=== PATIENT | female | born 1985 | race African-American/Black ===

== ENCOUNTER 2016-11-03 06:22 | Emergency (ER) | payer OTHER ==
[~2016-11-03] VITALS: Ht 167.6 cm; Wt 107.0 kg
[~2016-11-03 06:22] MED LIST: AMOX875 PO; MACR100C PO; PREN0.01 PO
[2016-11-03 06:23] VITALS: BP 117/64; PULSE 88; RESP 16; TEMP 98.3; O2SAT 96
[2016-11-03 06:44] VITALS: BP 126/88; PULSE 85; RESP 18; O2SAT 99
[2016-11-03] MEDS ORDERED: SODIUM CHLOR 0.9% 1000 ML INJ 1,000 ML IV ONE (07:30)
[2016-11-03] MEDS ORDERED: KETOROLAC TROMETHAMINE 30 MG/ML (IVP) VIAL IV PUSH ONE (07:30)
[2016-11-03] MEDS ORDERED: ONDANSETRON HCL 4 MG/2 ML VIAL IV PUSH ONE (07:30)
--- NOTE | 2016-11-03 07:32 | PD ---
HPI Chief Complaint: Abdominal Pain Time Seen by Provider: 07:07 Travel History International Travel<30 days: No Contact w/Intl Traveler<30days: No Traveled to known affect area: No History of Present Illness HPI Patient is a 30-year-old female comes in complaining of right lower abdominal pain. She says she has had the pain for 2-1/2 months. She has seen her doctor in [place] twice for this pain was told she had an ovarian cyst in August. She says she was started on control by her doctor for the pain. She says that she gets the pain about twice a month. This time came on Thursday. She says the pain is so bad it makes her nauseous. She has not had any vomiting. She denies any dysuria or vaginal discharge. She is moving her bowels like normal. She denies any fever or chills. She has not taken anything at home for the pain. Her last menstrual period was October 07. PFSH Past Medical History Hx Anticoagulant Therapy: No Asthma: Yes Cardiovascular Problems: No Chemotherapy: No Cerebrovascular Accident: No Diabetes: No Diminished Hearing: No Respiratory: No ?: Not LMP: 10/07/16 : 5 Para: 3 Ovarian Cysts: Yes Past Surgical History Appendectomy: Yes Section: Yes (X2) Hysterectomy: No Social History Alcohol Use: No Tobacco Use: No Substance Use: Yes (marijuana ) Allergies-Medications (Allergen,Severity, Reaction): Coded Allergies: No Known Allergies (Unverified , 11/03/16) Reported Meds & Prescriptions Reported Meds & Active Scripts Active Review of Systems Except as stated in HPI: all other systems reviewed are Neg General / Constitutional: No: Fever, Chills HENT: No: Headaches Cardiovascular: No: Chest Pain or Discomfort Respiratory: No: Shortness of Breath Gastrointestinal: Positive: Nausea, Abdominal Pain, No: Vomiting Genitourinary: No: Dysuria, Discharge Musculoskeletal: No: Pain Skin: No Rash, No Itching, No Change in Pigmentation Neurologic: No: Weakness, Dizziness Physical Exam Narrative GENERAL: Awake and alert, in no acute distress. SKIN: Warm and dry. HEAD: Atraumatic. Normocephalic. EYES: Pupils equal and round. No scleral icterus. ENT: Mucous membranes pink and moist. NECK: Trachea midline. No JVD. CARDIOVASCULAR: Regular rate and rhythm. No murmur appreciated. RESPIRATORY: No accessory muscle use. Clear to auscultation. Breath sounds equal bilaterally. GASTROINTESTINAL: Abdomen soft, nondistended. Mild tenderness to palpation of the right lower quadrant, no rebound or guarding. No CVA tenderness. PELVIC: MUSCULOSKELETAL: No obvious deformities. No clubbing. No cyanosis. No edema. NEUROLOGICAL: Awake and alert. No obvious cranial nerve deficits. Motor grossly within normal limits. Normal speech. PSYCHIATRIC: Appropriate mood and affect; insight and judgment normal. Data Data Last Documented VS Vital Signs Date Time Temp Pulse Resp B/P Pulse Ox O2 Delivery O2 Flow Rate FiO2 11/03/16 09:29 18 11/03/16 06:44 85 126/88 99 Room Air 11/03/16 06:23 98.3 Orders Complete Blood Count With Diff (11/03/16 07:16) Comprehensive Metabolic Panel (11/03/16 07:16) Urinalysis - C+S If Indicated (11/03/16 07:16) Ed Urine Pregnancytest Poc (11/03/16 07:16) Ketorolac Inj (Toradol Inj) (11/03/16 07:30) Ondansetron Inj (Zofran Inj) (11/03/16 07:30) Sodium Chlor 0.9% 1000 Ml Inj (Ns 1000 M (11/03/16 07:30) Us Pelvis Comp W Doppler (11/03/16 ) Labs Laboratory Tests Test 11/03/16 07:25 White Blood Count 8.3 TH/MM3 Red Blood Count 4.86 MIL/MM3 Hemoglobin 10.0 GM/DL Hematocrit 31.6 % Mean Corpuscular Volume 65.0 FL Mean Corpuscular Hemoglobin 20.6 PG Mean Corpuscular Hemoglobin 31.7 % Concent Red Cell Distribution Width 21.6 % Platelet Count 205 TH/MM3 Mean Platelet Volume 9.8 FL Neutrophils (%) (Auto) 55.9 % Lymphocytes (%) (Auto) 33.2 % Monocytes (%) (Auto) 8.0 % Eosinophils (%) (Auto) 2.3 % Basophils (%) (Auto) 0.6 % Neutrophils # (Auto) 4.7 TH/MM3 Lymphocytes # (Auto) 2.8 TH/MM3 Monocytes # (Auto) 0.7 TH/MM3 Eosinophils # (Auto) 0.2 TH/MM3 Basophils # (Auto) 0.0 TH/MM3 CBC Comment AUTO DIFF Differential Comment AUTO DIFF CONFIRMED Urine Color YELLOW Urine Turbidity HAZY Urine pH 5.5 Urine Specific [place] 1.035 Urine Protein TRACE mg/dL Urine Glucose (UA) NEG mg/dL Urine Ketones NEG mg/dL Urine Occult Blood NEG Urine Nitrite NEG Urine Bilirubin NEG Urine Urobilinogen LESS THAN 2.0 MG/DL Urine Leukocyte Esterase NEG Urine RBC LESS THAN 1 /hpf Urine WBC 2 /hpf Urine Squamous Epithelial 5 /hpf Cells Urine Bacteria RARE /hpf Urine Hyaline Casts 1 /lpf Urine Mucus MANY /lpf Microscopic Urinalysis Comment CULT NOT INDICATED Sodium Level 142 MEQ/L Potassium Level 3.6 MEQ/L Chloride Level 108 MEQ/L Carbon Dioxide Level 25.1 MEQ/L Anion Gap 9 MEQ/L Blood Urea Nitrogen 12 MG/DL Creatinine 0.82 MG/DL Estimat Glomerular Filtration 100 ML/MIN Rate Random Glucose 104 MG/DL Calcium Level 8.6 MG/DL Total Bilirubin 0.3 MG/DL Aspartate Amino Transf 9 U/L (AST/SGOT) Alanine Aminotransferase 14 U/L (ALT/SGPT) Alkaline Phosphatase 68 U/L Total Protein 7.5 GM/DL Albumin 3.3 GM/DL [facility] Medical Decision Making Medical Screen Exam Complete: Yes Emergency Medical Condition: Yes Differential Diagnosis Ovarian cyst versus UTI versus mittelschmerz syndrome Narrative Course Patient is a 30 year old female who comes in complaining of right sided abdominal pain. Exam shows mild right sided tenderness. IV established, labs sent. Labs show no acute abnormalities. Patient given Toradol and IVF. US performed shows no acute abnormalities. Patient discharged with prescription for naproxen. Advised to follow up with her doctors. Advised to return to the ED as needed for any worsening symptoms. Diagnosis Primary Impression: Abdominal pain Qualified Code: R10.31 - Right lower quadrant abdominal pain Patient Instructions: Abdominal Pain (ED), General Instructions, Mittelschmerz (ED) Additional Instructions: Take Naproxen as needed for pain. Follow up with your doctors. Return to the ED as needed for any worsening symptoms. Scripts Naproxen Sodium DS 550 Mg Tsd082 Mg PO BID 7 Days Ref 0 Prov:Maria Eugenia Ruvalcaba MD 11/03/16 Disposition: DISCHARGE HOME Condition: Stable Maria Eugenia Ruvalcaba MD Nov 03, 2016 07:32
[2016-11-03 07:35] LABS: AUTOMATED NEUTROPHIL # 4.7 TH/MM3 (1.8-7.7); BASOPHIL % 0.6 % (0.0-2.0); EOSINOPHIL # 0.2 TH/MM3 (0-0.4); EOSINOPHIL % 2.3 % (0.0-4.0); HEMATOCRIT 31.6 % (35.0-46.0); LYMPH % 33.2 % (9.0-44.0); LYMPHOCYTE # 2.8 TH/MM3 (1.0-4.8); MEAN CORPUSCULAR HEMOGLOBIN 20.6 PG (27.0-34.0); MEAN CORPUSCULAR HGB CONC 31.7 % (32.0-36.0); NEUT % 55.9 % (16.0-70.0); PLATELET COUNT 205 TH/MM3 (150-450); RED BLOOD COUNT 4.86 MIL/MM3 (4.00-5.30); RED CELL DISTRIBUTION WIDTH 21.6 % (11.6-17.2); WHITE BLOOD COUNT 8.3 TH/MM3 (4.0-11.0)
[2016-11-03 07:36] LABS: HEMO FLAGS AUTO DIFF
[2016-11-03 07:47] LABS: ANION GAP 9 MEQ/L (5-15); AST (GOT) 9 U/L (15-37); BACTERIA, URINE RARE /hpf; BICARBONATE 25.1 MEQ/L (21.0-32.0); BLOOD UREA NITROGEN 12 MG/DL (7-18); BLOOD, URINE NEG (NEG); CHLORIDE 108 MEQ/L (98-107); COMMENT (UR) CULT NOT INDICATED; CULTURE IF INDICATED CULT NOT INDICATED; GLOMERULAR FILTRATION RATE 100 ML/MIN (>89); GLUCOSE,URINE NEG (NEG); HYALINE CAST, URINE 1 /lpf (RARE); KETONE, URINE NEG (NEG); MUCUS URINE MANY /lpf (OCC); NITRITE,URINE NEG (NEG); PH, URINE 5.5 (5.0-8.5); POTASSIUM 3.6 MEQ/L (3.5-5.1); SODIUM (NA) 142 MEQ/L (136-145); SQUAMOUS EPITHELIAL CELL URINE 5 /hpf (0-5); URINE COLOR YELLOW (YELLW/STRAW)
[2016-11-03 07:51] LABS: ALKALINE PHOSPHATASE 68 U/L (45-117); ALT (GPT) 14 U/L (10-53); TOTAL BILIRUBIN ADULT 0.3 MG/DL (0.2-1.0)
[2016-11-03 08:15] LABS: SCAN/DIFF AUTO DIFF CONFIRMED
[2016-11-03 09:29] VITALS: RESP 18
--- NOTE | 2016-11-03 10:25 | RADRPT ---
EXAM DATE/TIME: 11/03/2016 07:50 [facility] COMPARISON: No previous studies available for comparison. EXTERNAL COMPARISON : [facility], US TRANSVAGINAL, September 29, 2016, US PELVIS - COMPLETE, September 29, 2016. INDICATIONS : Pelvic pain. Ovarian cysts. MEDICAL HISTORY : Asthma. Ovarian cysts. Substance use. SURGICAL HISTORY : Appendectomy. section. ENCOUNTER: Subsequent ACUITY: 2 weeks PAIN SCORE: 3/10 LOCATION: Right pelvis MEASUREMENTS: UTERUS: 11.0 x 4.1 x 6.1 cm ENDOMETRIAL STRIPE: 3 mm RIGHT OVARY: 2.9 x 1.8 x 2.3 cm LEFT OVARY: 3.3 x 1.7 x 1.9 cm FINDINGS: UTERUS: The myometrium has homogeneous echotexture without mass. RIGHT OVARY: Ovary contains no mass or significant cystic lesion. Color Doppler flow is noted within the ovary. LEFT OVARY: Ovary contains no mass or significant cystic lesion. Color Doppler flow is noted within the ovary. MISCELLANEOUS: No free fluid. CONCLUSION: Normal examination. Donn Higginbotham MD on November 03, 2016 at 10:22 Board Certified Radiologist. This report was verified electronically.
[2016-11-03] MEDS ORDERED: NAPR550T3 PO (10:39)
[2016-11-03 11:05] VITALS: BP 114/76
== END 2016-11-03 11:05 | disposition home or self-care (01) ==
LOC: NEPE 06:22
DX: R10.30 Lower abdominal pain, unspecified (principal); F12.90 Cannabis use, unspecified, uncomplicated
CPT/HCPCS: 76856; 80053; 81001; 84703; 85025; 93975; 96361; 96374; 96375; 99284; J1885; J2405; J7030

== ENCOUNTER 2017-06-18 04:36 | Emergency (ER) | payer MEDICAID, OTHER ==
[~2017-06-18 04:36] MED LIST changes: -AMOX875 PO; -MACR100C PO; +NAPR550T3 PO; -PREN0.01 PO
[2017-06-18 04:38] VITALS: BP 166/81; PULSE 101; RESP 16; TEMP 98; O2SAT 100
[2017-06-18] MEDS ORDERED: DICL75TA PO ×2 (05:09)
[2017-06-18] MEDS ORDERED: NAPROXEN 500 MG TAB PO ONE ×2 (05:15)
--- NOTE | 2017-06-18 05:15 | PD ---
HPI Chief Complaint: Musculoskeletal Complaint Time Seen by Provider: 05:01 Travel History International Travel<30 days: No Contact w/Intl Traveler<30days: No Traveled to known affect area: No History of Present Illness HPI 31-year-old black female presents to emergency Department with complaints of left knee pain. She states that she had an injury yesterday when she was wrestling with a friend. They pulled on her leg and she felt something pull in her knee. Since then she's been having pain with weightbearing. The pain is more in the back of her knee. She denies any history of knee problems in the past. Patient denies any injury to her head, neck or back. Pain is mild but more moderate when she attempts to bear weight. Some relief with elevation. PFSH Past Medical History Hx Anticoagulant Therapy: No Asthma: Yes Cardiovascular Problems: No Chemotherapy: No Cerebrovascular Accident: No Diabetes: No Diminished Hearing: No Respiratory: No Tetanus Vaccination: Unknown ?: Unknown LMP: 05/17/17 : 5 Para: 3 : 1 Ovarian Cysts: Yes Past Surgical History Appendectomy: Yes Section: Yes (X2) Hysterectomy: No Social History Alcohol Use: Yes (OCC) Tobacco Use: No Substance Use: Yes (marijuana ) Allergies-Medications (Allergen,Severity, Reaction): Coded Allergies: No Known Allergies (Unverified , 06/18/17) Reported Meds & Prescriptions Reported Meds & Active Scripts Active No Active Prescriptions or Reported Medications Review of Systems General / Constitutional: No: Fever Eyes: No: Visual changes HENT: No: Headaches Cardiovascular: No: Chest Pain or Discomfort Respiratory: No: Shortness of Breath Gastrointestinal: No: Abdominal Pain Genitourinary: No: Dysuria Musculoskeletal: Positive: Arthralgias, Limited ROM, Pain, No: Edema Skin: No Rash Neurologic: No: Weakness Psychiatric: No: Depression Endocrine: No: Polydipsia Hematologic/Lymphatic: No: Easy Bruising Physical Exam Narrative GENERAL: This is a well-nourished, well-developed patient, in no apparent distress. SKIN: No rashes, ecchymoses or lesions. Warm and dry. HEAD: Atraumatic. Normocephalic. EYES: PERRL, EOMI, no discharge or injection. No scleral icterus. EARS: Clear NOSE: Nasal turbinates appear normal. THROAT: Mucosa pink and moist. Airway patent. NECK: Trachea midline. supple, moves head freely. LUNGS: Clear to auscultation. CV: Regular in rhythm. ABDOMEN: Soft nontender. EXT: No clubbing cyanosis or edema. Examination of the left lower extremity reveals pain in the hamstring area into the knee. She also complains of some tenderness to the medial lateral compartments of the knee. There is no instability. No anterior posterior draw. No joint effusion. The skin is intact. Patient ambulates with antalgic gait. Patient's neurovascular intact area no pain in the hip, ankle or foot. Data Data Last Documented VS Vital Signs Date Time Temp Pulse Resp B/P (MAP) Pulse Ox O2 Delivery O2 Flow Rate FiO2 06/18/17 04:38 98.0 101 16 166/81 (109) 100 Room Air Orders Orders Splint Or Brace Apply/Monitor (06/18/17 05:07) Crutches (06/18/17 05:07) Naproxen (Naprosyn) (06/18/17 05:15) Ed Discharge Order (06/18/17 05:07) MDM Medical Decision Making Medical Screen Exam Complete: Yes Emergency Medical Condition: Yes Medical Record Reviewed: Yes Differential Diagnosis MDM: High Differential diagnoses: Fracture, sprain, strain, dislocation, contusion, neurovascular injury Narrative Course Patient's exam and history does not indicate a need for an x-ray today. Patient will be given Naprosyn 500 g by mouth, Shane wrap and crutches. This is left knee sprain Diagnosis Primary Impression: left knee sprain Patient Instructions: General Instructions Additional Instructions: Rest. Elevation. Ice packs for the next 3 days. Shane wrap and crutches. No weight-bearing and then progress to weight-bearing as tolerated. Medications as directed Follow-up with an orthopedist or your doctor in one week. Return to the ER if any problems Med/Other Pt SpecificInfo: Prescription(s) given Scripts Diclofenac Sodium (Diclofenac Sodium DR) 75 Mg Tabdr 75 MG PO BID, #20 TAB 0 Refills Prov: Jose Roberto Salazar MD 06/18/17 Disposition: 01 DISCHARGE HOME Condition: Stable Iván Mathias Jun 18, 2017 05:15
== END 2017-06-18 05:25 | disposition home or self-care (01) ==
LOC: NEPD 04:36
DX: S83.92XA Sprain of unspecified site of left knee, initial encounter (principal); X50.9XXA Other and unspecified overexertion or strenuous movements or postures, initial encounter; Y93.72 Activity, wrestling
CPT/HCPCS: 99283; E0113

== ENCOUNTER 2017-08-13 22:12 | Emergency (ER) | payer MEDICAID ==
[~2017-08-13] VITALS: Ht 165.1 cm; Wt 101.0 kg
[~2017-08-13 22:12] MED LIST changes: +DICL75TA PO; -NAPR550T3 PO
[2017-08-13 22:13] VITALS: BP 138/60; PULSE 91; RESP 16; TEMP 97.8; O2SAT 98
--- NOTE | 2017-08-13 22:51 | RADRPT ---
EXAM DATE/TIME: 08/13/2017 22:43 [facility] COMPARISON: No previous studies available for comparison. INDICATIONS : Left anterior lateral knee pain, fell MEDICAL HISTORY : None. SURGICAL HISTORY : None. ENCOUNTER: Initial ACUITY: 2 months PAIN SCORE: 8/10 LOCATION: Left Knee FINDINGS: Four view examination of the left knee demonstrates no evidence of fracture or dislocation. Bony min eralization is normal. The articular surfaces are intact. The suprapatellar soft tissues have a nor mal configuration. CONCLUSION: No evidence of recent bony injury. Santhosh Blanco MD on August 13, 2017 at 22:49 Board Certified Radiologist. This report was verified electronically.
[2017-08-13] MEDS ORDERED: traMADol HCL 50 MG TAB PO ONE (23:15)
[2017-08-13] MEDS ORDERED: NAPROXEN 500 MG TAB PO ONE (23:15)
[2017-08-13] MEDS ORDERED: TRAM50 PO (23:16)
[2017-08-13] MEDS ORDERED: DICL75TA PO (23:16)
--- NOTE | 2017-08-13 23:22 | PD ---
HPI Chief Complaint: Pain: Acute or Chronic Time Seen by Provider: 23:04 Travel History International Travel<30 days: No Contact w/Intl Traveler<30days: No Traveled to known affect area: No History of Present Illness HPI 31-year-old black female presents to emergency department with complaints of left knee pain after a fall. Patient said had a history of left knee pain for the last 2 months. She denies any numbness or tingling. No injury to her head , neck or back. Pain is worse when she squats or bends. She states the pain is not as severe as she stands or walks. Pain is mild to moderate. Some alleviating factors of elevation and immobilization. PFSH Past Medical History Narrative Medical Chronic left knee pain Hx Anticoagulant Therapy: No Asthma: Yes Cardiovascular Problems: No Chemotherapy: No Cerebrovascular Accident: No Diabetes: No Diminished Hearing: No Respiratory: No Tetanus Vaccination: Unknown Influenza Vaccination: No ?: Not LMP: 08/08/17 : 5 Para: 3 Miscarriage: 4 : 1 Ovarian Cysts: Yes Past Surgical History Surgical History: No Previous Surgery Appendectomy: Yes Section: Yes (X2) Hysterectomy: No Social History Alcohol Use: Yes (OCC) Tobacco Use: No Substance Use: Yes (marijuana ) Allergies-Medications (Allergen,Severity, Reaction): Coded Allergies: No Known Allergies (Unverified Adverse Reaction, Unknown, 08/13/17) Reported Meds & Prescriptions Reported Meds & Active Scripts Active Ultram (Tramadol HCl) 50 Mg Tab 50 Mg PO Q4H PRN Diclofenac Sodium DR (Diclofenac Sodium) 75 Mg Tabdr 75 Mg PO BID Diclofenac Sodium DR (Diclofenac Sodium) 75 Mg Tabdr 75 Mg PO BID Review of Systems General / Constitutional: No: Fever Eyes: No: Visual changes HENT: No: Headaches Cardiovascular: No: Chest Pain or Discomfort Respiratory: No: Shortness of Breath Gastrointestinal: No: Abdominal Pain Genitourinary: No: Dysuria Musculoskeletal: Positive: Arthralgias, Limited ROM, Pain Skin: No Rash Neurologic: No: Weakness Psychiatric: No: Depression Endocrine: No: Polydipsia Hematologic/Lymphatic: No: Easy Bruising Physical Exam Narrative GENERAL: Well-developed, well-nourished in no apparent distress. Nontoxic appearing. HEAD: Normocephalic, atraumatic. EYES: Pupils equal round and reactive. Extraocular motions intact. No scleral icterus. No injection or drainage. ENT: Nose clear. Throat without erythema, tonsillar hypertrophy or exudate. Uvula midline. Airway patent. NECK: Trachea midline. Supple, nontender, moves head freely. No central bony tenderness or spasm. CARDIOVASCULAR: Regular rate and rhythm without murmurs, gallops, or rubs. RESPIRATORY: Clear to auscultation. Breath sounds equal bilaterally. No wheezes , rales, or rhonchi. GASTROINTESTINAL: Abdomen soft, non-tender, nondistended. No hepato-splenomegaly , or palpable masses. No guarding. EXTREMITIES: No clubbing, cyanosis, or edema. Examination left lower extremity reveals tenderness over the patella and posterior popliteal fossa. Patient has no anterior posterior draw. No medial lateral collateral ligament instability or pain. No joint effusion. She has full extension but has slightly limited flexion. Positive pain on meniscal testing. No pain in the hip, ankle or foot. She has intact sensation with good distal pulses. Right lower extremity as well as upper extremities are without localizing bony tenderness or deformity. Neurovascular intact. BACK: Nontender without deformity. No flank tenderness. NEUROLOGICAL: Awake, alert and oriented x 3 .Cranial nerves grossly intact. Motor and sensory grossly within normal limits. Normal speech. Data Data Last Documented VS Vital Signs Date Time Temp Pulse Resp B/P (MAP) Pulse Ox O2 Delivery O2 Flow Rate FiO2 08/13/17 23:14 20 08/13/17 22:13 97.8 91 138/60 (86) 98 Room Air Orders Orders Knee, Complete (4vws) (08/13/17 ) Ed Discharge Order (08/13/17 23:12) Tramadol (Ultram) (08/13/17 23:15) Naproxen (Naprosyn) (08/13/17 23:15) [facility] Medical Decision Making Medical Screen Exam Complete: Yes Emergency Medical Condition: Yes Medical Record Reviewed: Yes Interpretation(s) Last 24 hours Impressions Knee X-Ray 08/13/17 0000 Signed Impressions: Service Date/Time: July 22:43 - CONCLUSION: No evidence of recent bony injury. Santhosh Blanco MD Differential Diagnosis MDM: High Differential diagnoses: Fracture, sprain, strain, dislocation, contusion, neurovascular injury Narrative Course x-RAY OF THE LEFT KNEE IS NEGATIVE FOR BONY INJURY. Patient given Naprosyn 500 mg and Ultram 50 mg by mouth. Diagnosis Primary Impression: left knee contusion Patient Instructions: Narcotic given in the ED, General Instructions Departure Forms: Tests/Procedures, Work Release Special Instructions: No work 2 days. Med/Other Pt SpecificInfo: Prescription(s) given Scripts Tramadol (Ultram) 50 Mg Tab 50 MG PO Q4H Y for PAIN, #20 TAB 0 Refills Prov: Kelly Manuel DO 08/13/[address] (Diclofenac Sodium DR) 75 Mg Tabdr 75 MG PO BID, #20 TAB 0 Refills Prov: Kelly Manuel DO 08/13/17 Disposition: 01 DISCHARGE HOME Condition: Stable Iván Mathias Aug 13, 2017 23:21
== END 2017-08-14 00:01 | disposition home or self-care (01) ==
LOC: NEPD 22:12
DX: S80.02XA Contusion of left knee, initial encounter (principal); J45.909 Unspecified asthma, uncomplicated; Z79.899 Other long term (current) drug therapy; X58.XXXA Exposure to other specified factors, initial encounter
CPT/HCPCS: 73564; 99284

== ENCOUNTER 2017-10-21 23:06 | Emergency (ER) | payer MEDICAID ==
[~2017-10-21] VITALS: Ht 165.1 cm; Wt 100.0 kg
[~2017-10-21 23:06] MED LIST changes: +TRAM50 PO
[2017-10-21 23:26] VITALS: BP 125/77; PULSE 92; RESP 18; TEMP 98.1; O2SAT 100
--- NOTE | 2017-10-21 23:43 | PD ---
HPI Chief Complaint: Headache Time Seen by Provider: 23:32 Travel History International Travel<30 days: No Contact w/Intl Traveler<30days: No Traveled to known affect area: No History of Present Illness HPI Patient is a 31-year-old female presenting to the emergency department for evaluation of headache. Patient states her headache started today around noon. At 2 PM she took 800 mg ibuprofen which gave her some relief. She reports a history of headaches but states this feels worse. Patient states is throbbing, she reports her pain is 8 out of 10. She reports that she feels dizzy at times , she denies any cold or flulike symptoms, chest pain, shortness of breath, abdominal pain, nausea. Symptom onset was gradual,moderate severity. PFSH Past Medical History Medical History: Denies Significant Hx Hx Anticoagulant Therapy: No Asthma: Yes Tetanus Vaccination: Unknown Influenza Vaccination: No ?: Not LMP: 10/03/2017 : 8 Para: 3 Miscarriage: 4 : 1 Ovarian Cysts: Yes Past Surgical History Appendectomy: Yes Section: Yes (X2) Hysterectomy: No Social History Alcohol Use: No Tobacco Use: No Substance Use: Yes (marijuana ) Allergies-Medications (Allergen,Severity, Reaction): Coded Allergies: No Known Allergies (Unverified Adverse Reaction, Unknown, 10/21/17) Reported Meds & Prescriptions Reported Meds & Active Scripts Active Ultram (Tramadol HCl) 50 Mg Tab 50 Mg PO Q4H PRN Diclofenac Sodium DR (Diclofenac Sodium) 75 Mg Tabdr 75 Mg PO BID Diclofenac Sodium DR (Diclofenac Sodium) 75 Mg Tabdr 75 Mg PO BID Review of Systems Except as stated in HPI: all other systems reviewed are Neg Eyes: Positive: Photophobia HENT: Positive: Headaches Neurologic: Positive: Dizziness Physical Exam Narrative GENERAL: Overweight, well-developed, alert -[place] female. Presenting in no acute distress. SKIN: Warm and dry. HEAD: Atraumatic. Normocephalic. Tenderness to palpation maxillary sinuses. EYES: Pupils equal and round. No scleral icterus. No injection or drainage. ENT: No nasal bleeding or discharge. Mucous membranes pink and moist. NECK: Trachea midline. No JVD. CARDIOVASCULAR: Regular rate and rhythm. RESPIRATORY: No accessory muscle use. Clear to auscultation. Breath sounds equal bilaterally. GASTROINTESTINAL: Abdomen soft, non-tender, nondistended. Hepatic and splenic margins not palpable. MUSCULOSKELETAL: Extremities without clubbing, cyanosis, or edema. No obvious deformities. NEUROLOGICAL: Awake and alert. No obvious cranial nerve deficits. Motor grossly within normal limits. Five out of 5 muscle strength in the arms and legs. Normal speech. PSYCHIATRIC: Appropriate mood and affect; insight and judgment normal. Data Data Last Documented VS Vital Signs Date Time Temp Pulse Resp B/P (MAP) Pulse Ox O2 Delivery O2 Flow Rate FiO2 10/21/17 23:26 98.1 92 18 125/77 (93) 100 Orders Orders Ecg Monitoring (10/21/17 23:37) Iv Access Insert/Monitor (10/21/17 23:37) Oximetry (10/21/17 23:37) Sodium Chloride 0.9% Flush (Ns Flush) (10/21/17 23:45) Ketorolac Inj (Toradol Inj) (10/21/17 23:45) Prochlorperazine Inj (Compazine Inj) (10/21/17 23:45) Diphenhydramine Inj (Benadryl Inj) (10/21/17 23:45) Sodium Chlor 0.9% 1000 Ml Inj (Ns 1000 M (10/21/17 23:45) MDM Medical Decision Making Medical Screen Exam Complete: Yes Emergency Medical Condition: Yes Interpretation(s) Vital Signs Date Time Temp Pulse Resp B/P (MAP) Pulse Ox O2 Delivery O2 Flow Rate FiO2 10/21/17 23:26 98.1 92 18 125/77 (93) 100 Differential Diagnosis Migraine versus tension type headache versus cluster headache versus sinusitis versus other Narrative Course Patient is a 31-year-old well-appearing female presenting for evaluation of a headache. Patient's vital signs are stable, medications ordered and pending. There are no focal deficits noted on exam. Will reassess. Patient was reassessed, she reports improvement in pain. She is encouraged to follow-up with her primary doctor or return to the emergency department for any new worsening symptoms. Patient did have tenderness over maxillary sinuses, she will be provided with a prescription for antibiotics however she was strongly encouraged to continue or trial symptom management. Diagnosis Primary Impression: Headache Qualified Codes: R51 - Headache Referrals: [facility] Patient Instructions: Acute Headache (ED), General Instructions Additional Instructions: Follow-up with your primary doctor Take medications as needed and as directed If you begin antibiotic complete full course Return to emergency department for any new worsening symptoms Med/Other Pt SpecificInfo: Prescription(s) given Scripts Amoxicillin (Amoxicillin) 875 Mg Tab 875 MG PO BID for Infection, #20 TAB 0 Refills Prov: Barbara Milton 10/22/17 Ibuprofen (Ibuprofen) 800 Mg Tab 800 MG PO Q6HR Y for PAIN, #40 TAB 0 Refills Prov: Barbara Milton 10/22/17 Disposition: 01 DISCHARGE HOME Condition: Stable Barbara Milton Oct 21, 2017 23:43
[2017-10-21] MEDS ORDERED: SODIUM CHLORIDE 0.9% FLUSH 10 ML FLUSH IVF PRN (23:45)
[2017-10-21] MEDS ORDERED: KETOROLAC TROMETHAMINE 30 MG/ML (IVP) VIAL IVP ONE (23:45)
[2017-10-21] MEDS ORDERED: PROCHLORPERAZINE INJ 10 MG/2 ML VIAL IVP ONE (23:45)
[2017-10-21] MEDS ORDERED: SODIUM CHLOR 0.9% 1000 ML INJ 1,000 ML IV ONE (23:45)
[2017-10-21] MEDS ORDERED: diphenhydrAMINE HCL 50 MG/ML VIAL IVP ONE (23:45)
--- NOTE | 2017-10-22 00:48 | PD ---
Physical Exam Date Seen by Provider: Oct 22, 2017 Time Seen by Provider: 00:00 Narrative I, Dr. Koch, have reviewed the advance practice practitioner's documentation and am in agreement, met with the patient face to face, made the diagnosis, and the medical decision making was done by me. *My assessment and Findings: Patient seen and evaluated with PA, please see PA note for further details. She is here for headaches, has history previous headaches as well, not getting better. She denies any stiff neck, fevers, or other issues. On exam, she has no focal neurological deficits, does not have meningeal signs. Vital signs are stable in the ER. She was given symptomatic relief for headaches. On reevaluation, patient is resting comfortably, headache is improving. Planning to release with further symptomatic relief for headaches. Data Data Last Documented VS Vital Signs Date Time Temp Pulse Resp B/P (MAP) Pulse Ox O2 Delivery O2 Flow Rate FiO2 10/21/17 23:26 98.1 92 18 125/77 (93) 100 Orders Orders Ecg Monitoring (10/21/17 23:37) Iv Access Insert/Monitor (10/21/17 23:37) Oximetry (10/21/17 23:37) Sodium Chloride 0.9% Flush (Ns Flush) (10/21/17 23:45) Ketorolac Inj (Toradol Inj) (10/21/17 23:45) Prochlorperazine Inj (Compazine Inj) (10/21/17 23:45) Diphenhydramine Inj (Benadryl Inj) (10/21/17 23:45) Sodium Chlor 0.9% 1000 Ml Inj (Ns 1000 M (10/21/17 23:45) MDM Medical Record Reviewed: Yes Supervised Visit with ADDISON: Yes Diagnosis Primary Impression: Headache Disposition: 01 DISCHARGE HOME Condition: Stable Brayan Koch MD Oct 22, 2017 00:48
[2017-10-22] MEDS ORDERED: AMOX875T PO (01:15)
[2017-10-22] MEDS ORDERED: IBUP1TAB7 PO (01:15)
== END 2017-10-22 03:31 | disposition home or self-care (01) ==
LOC: NEPD 23:06
DX: R51 Headache (principal); R42 Dizziness and giddiness; J45.909 Unspecified asthma, uncomplicated; F12.90 Cannabis use, unspecified, uncomplicated; H53.149 Visual discomfort, unspecified
CPT/HCPCS: 96361; 96374; 96375; 99284; J0780; J1200; J1885; J7030